=== PATIENT | male | born 1960 | race Caucasian/White ===

== ENCOUNTER → 2018-01-21 | Outpatient (CLI) | payer OTHER ==
[~2018-01-21] MED LIST: ASPIRIN E.C. 8181 MG PO; CRANBERRY FRUI425 MG PO; FISH OIL1000 MG PO; FLOMAX 0.40.4 MG/CAP PO; MAG-OX 400400 MG/TAB PO; MASON NATURAL600 MG PO; NATURAL ODORLE400 MG PO; PRINIVIL10 MG PO; TAMBOCOR50 MG PO; THE MEDICINE S200 M2 PO; TOPROL XL 25MG25 MG PO; TURMERIC500 MG PO; VITAMIN B COMPL1 SGL PO; VITAMIN D 1001000 IU PO; VITAMINC1000TA PO
[2018-01-21 07:27] VITALS: BP 144/82; PULSE 63
== END ==
LOC: COL.CARD 07:06
DX: I48.0 Paroxysmal atrial fibrillation (principal); I10 Essential (primary) hypertension; Z79.899 Other long term (current) drug therapy
CPT/HCPCS: A9502

== ENCOUNTER 2022-01-01 15:11 | Day surgery (SDC) | payer OTHER ==
[2022-01-01] VITALS (9 sets, daily range): BP systolic 137–164; BP diastolic 63–90; PULSE 57–64; TEMP 97.3–98.3
[~2022-01-01] VITALS: Ht 185.4 cm; Wt 102.6 kg
[~2022-01-01 15:11] MED LIST changes: -VITAMIN D 1001000 IU PO; +VITAMIN D31000 I1 PO
--- NOTE | 2022-01-01 15:30 | NUR ---
admitted per WC to room 330, alert and oriented and assisted into gown and into bed
--- NOTE | 2022-01-01 16:00 | NUR ---
admission assessment completed, see interventions for further info,
[2022-01-01] MEDS ORDERED: MASON NATURAL1200 MG PO (16:24)
[2022-01-01] MEDS ORDERED: CRANBERRY250 MG PO (16:24)
[2022-01-01] MEDS ORDERED: COZAAR 50MG50 MG/TAB PO (16:29)
[2022-01-01] MEDS ORDERED: ANDROGEL1.62% TOP (16:29)
[2022-01-01] MEDS ORDERED: PLAVIX 75MG TAB75 MG PO (16:30)
[2022-01-01] MEDS ORDERED: CRESTOR20 MG PO (16:30)
--- NOTE | 2022-01-01 16:40 | NUR ---
ready for surgery, at bedside
--- NOTE | 2022-01-01 17:28 | NUR ---
to surgery per bed
[2022-01-01] MEDS ORDERED: NORCO 325 MG-51 TAB PO (17:58)
[2022-01-01] MEDS ORDERED: PYRIDIUM 100MG100 MG PO (17:58)
--- NOTE | 2022-01-01 18:58 | NUR ---
bedside shift report given to AL Robles
--- NOTE | 2022-01-01 19:30 | NUR ---
PT. TO ROOM 330 AFTER A CYSTOSCOPY AND REMOVAL OF RIGHT KIDNEY STONE. PT. ALERT AND SLIGHTLY DROWSY. IV INFUSING TO RIGHT AC. NO COMPLAINTS OF PAIN OR NAUSEA. ASSESSMENT COMPLETE. CALL LIGHT IN REACH. NO FURHTER NEEDS AT THIS TIME.
--- NOTE | 2022-01-01 21:40 | NUR ---
Pt. met discharge criteria. Pt. given discharge instructions, education, and pt. health summary. Educated pt. on medications sent to pharmacy. Pt. voices under standing. INT discontinued to rt. ac. Pt. tolerated well. Pt. escorted out by rabbit dresser.
== END 2022-01-01 21:46 | disposition home or self-care (01) ==
LOC: SDCO 15:11 → SURG 15:11 → SDCO 19:00
DX: N20.1 Calculus of ureter (principal)
CPT/HCPCS: OP; C1769; C2617; J0690; J1100; J2405; J2704; J3010; J7120; Q9967